=== PATIENT | male | born 1985 | race Hispanic/Latino ===

== ENCOUNTER 2017-08-01 19:51 | Emergency (ER) | payer MEDICAID | END 2017-08-01 20:21 | disposition home or self-care (01) | LOC: EDH 19:51 | DX: G89.29 Other chronic pain (principal); M25.562 Pain in left knee; Z91.041 Radiographic dye allergy status; Z91.013 Allergy to seafood; Z87.891 Personal history of nicotine dependence | CPT/HCPCS: 99281 ==